=== PATIENT | male | born 1960 | race Caucasian/White ===

== ENCOUNTER 2024-12-30 12:53 | Emergency (ER) | payer MEDICAID, SELFPAY ==
[2024-12-30 12:54] VITALS: BMI 34.7
[2024-12-30 13:20] VITALS: BP 174/84; PULSE 88; RESP 18; TEMP 36.9; O2SAT 99
--- NOTE | 2024-12-30 13:34 | PD.EDHEAD ---
ED Head Injury RME/HPI General Chief complaint: Head Injury Stated complaint: LAC TO BACK OF HEAD WITH EDGE OF TABLE Time Seen by Provider: 12/30/24 13:16 Source: patient Arrival date/time: 12/30/24 12:53 64-year-old male with no known medical history presents to the emergency room with a chief complaint of a laceration to the back of his head after hitting it on the edge of the table. Mode of arrival: ambulatory Limitations: no limitations Related Data Home Medications ?Medication ?Instructions ?Recorded ?Confirmed ASPIRIN (ASA 81MG EC) 81 mg PO QDAY ##0 10/21/13 Allergies Allergy/AdvReac Type Severity Reaction Status Date / Time NKA* Allergy Uncoded 12/30/24 12:56 Review of Systems Review of Systems Systems Reviewed: All systems reviewed, normal except as documented Constitutional Constitutional: Reports system reviewed and no additional complaints, except as documented, Denies fatigue, Denies fever(s), Denies headache(s) and Denies weakness Eyes Eyes: Reports system reviewed and no additional complaints, except as documented, Denies blurry vision and Denies change in vision ENT Ears, Nose, Mouth, and Throat: Reports system reviewed and no additional complaints, except as documented, Denies otalgia, Denies headache(s), Denies nasal congestion, Denies throat swelling and Denies vertigo Cardiovascular Cardiovascular: Reports system reviewed and no additional complaints, except as documented, Denies chest pain, Denies dyspnea and Denies dyspnea on exertion Respiratory Respiratory: Reports system reviewed and no additional complaints, except as documented, Denies chest congestion, Denies cough, Denies dyspnea, Denies dyspnea on exertion and Denies wheezing Gastrointestinal Gastrointestinal: Reports system reviewed and no additional complaints, except as documented, Denies abdominal pain, Denies cramping, Denies nausea and Denies vomiting Genitourinary Genitourinary: Reports system reviewed and no additional complaints, except as documented, Denies dysuria and Denies hematuria Musculoskeletal Musculoskeletal: Reports system reviewed and no additional complaints, except as documented and Denies back pain Integumentary/Breasts Skin/Breast: Reports system reviewed and no additional complaints, except as documented and Denies wounds Neurologic Neurologic: Reports system reviewed and no additional complaints, except as documented, Denies confusion, Denies headache(s), Denies lack of coordination, Denies vertigo and Denies weakness Psychiatric Psychiatric: Reports system reviewed and no additional complaints, except as documented, Denies anxiety, Denies confusion, Denies depression, Denies paranoia, Denies suicidal ideation and Denies tactile hallucinations Endocrine Endocrine: Reports system reviewed and no additional complaints, except as documented and Denies fatigue Hematologic/Lymphatic Hematologic/Lymphatic: Reports system reviewed and no additional complaints, except as documented and Denies lymphadenopathy Allergic/Immunologic Allergic/Immunologic: Reports system reviewed and no additional complaints, except as documented, Denies throat swelling, Denies urticaria and Denies wheezing ED Exam General Limitations: Present no limitations General appearance: Present alert and in no apparent distress Head Head exam: Present atraumatic, normocephalic and normal inspection Expanded Head Exam Head exam physical: Present laceration; Absent abrasion, contusion, hematoma, raccoon eyes, Orozco's sign, tenderness of temporal artery, CSF rhinorrhea or CSF otorrhea Head image:  1. 3 cm laceration to the back of his head Eye Eye exam: Present normal appearance, PERRL and EOMI ENT ENT exam: Present normal exam, normal oropharynx and mucous membranes moist Neck Neck exam: Present normal inspection, full ROM and trachea midline Chest Chest inspection: Present normal inspection and symmetric chest wall rise Respiratory Respiratory exam: Present normal lung sounds bilaterally Cardiovascular Cardiovascular exam: Present regular rate, normal rhythm and normal heart sounds Abdominal Exam Abdominal exam: Present soft and normal bowel sounds Extremities Exam Extremities exam: Present normal inspection and full ROM Back Exam Back exam: Present normal inspection and full ROM Neurological Exam Neurological exam: Present alert, oriented X3 and CN II-XII intact Psychiatric Psychiatric exam: Present normal affect and normal mood Skin Skin exam: Present warm, dry, intact and normal color Course Quality Measures none Vital Signs Vital signs: Vital Signs Temperature 98.5 F 12/30/24 13:20 Pulse Rate 88 12/30/24 13:20 Respiratory Rate 18 12/30/24 13:20 Blood Pressure 174/84 H 12/30/24 13:20 Pulse Oximetry (%) 99 12/30/24 13:20 Oxygen Delivery Method Room Air 12/30/24 13:20 Procedures -ED Laceration Laceration 1: Site: scalp Side (If applicable): left Size (cm): 3 Description: linear Depth: simple, single layer Skin layer closed with: other (Saul) Size (cm): other (Sidman) Number of sutures: 3 Technique: simple, interrupted Head Injury MDM Narrative MDM Narrative:: 64-year-old male with no known medical history presents to the emergency room with a chief complaint of a laceration to the back of his head after hitting it on the edge of the table. Patient is hemodynamically stable and in no apparent distress. Patient has a 3 cm laceration to the posterior side of his head. Patient states he hit his head on a table the wound is superficial. Patient denies any loss of consciousness dizziness lightheadedness headache or any other symptoms. The wound was closed and approximated with 3 saul. Patient was educated return to the emergency room in 7 to 10 days for staple removal patient was educated to follow-up with his primary care provider and return emergency room for any evidence of worsening signs or Patient data External records reviewed:: [facility] previous records Clinical information provided by:: patient Social determinants that could affect healthcare access:: none Patient has the following chronic illnesses:: No chronic illness How is presenting disease/condition affected by chronic disease/condition?: no chronic disease Evaluation data The following diagnostics were reviewed and interpreted by me:: lab results and radiology exam(s) Lab and/or radiology exams considered but not ordered:: Labs and radiology exams considered and ordered Interpretation Summary: N/A Medications / Prescriptions Medications or Prescriptions considered but not ordered:: No medication given Medication administrations:: No medication given Consultations Consultation(s) initiated? (list below): No Diagnosis Differential diagnosis head injury: concussion without loss of consciousness, closed head injury, subdural hematoma, concussion with loss of consciousness and other (Laceration) Most likely diagnosis given after review of the tests above:: Laceration Admission Indicated Admission indicated?: not indicated Admission Request Was there a request for admission?: No Disposition Plan Disposition Plan: Discharge Discharge Attestation Discharge Attestation: The patient and all family members were given an opportunity to ask questions and understood the discharge instructions. Discharge instructions specifically effects, indications for sooner follow up or return to the emergency department, and the expected course of current diagnosis. Patient condition: Stable Discharge Plan Plan Patient Disposition: HOME (Self Care) Discharge Disposition comment: Stable Prescriptions/Referrals Prescriptions/Med Rec: No Action ASPIRIN (ASA 81MG EC) 81 MG TABLET, ENTERIC COATED 81 mg PO QDAY Qty: 0 Problem List Clinical Impression: Laceration of scalp Patient/Caregiver Discharge Instructions Education Materials: ED Head Injury (Adult) Additional Instructions: Please follow-up with your primary care provider in the next 24 to 48 hours. For any evidence of worsening signs or symptoms return to the emergency room immediately Print Language: Serbian Stand Alone Forms: [facility]nam Award Info., Patient Portal Info Letter PA/QUALITY ASSURANCE ASSOCIATE Supervising Physician PA/QUALITY ASSURANCE ASSOCIATE Supervising Physician: Dr. CORONA
== END 2024-12-30 13:51 | disposition home or self-care (01) ==
LOC: SERX 13:39
PROVIDERS: Emergency Provider Emergency Medicine
DX: S01.01XA Laceration without foreign body of scalp, initial encounter (principal); W22.03XA Walked into furniture, initial encounter
CPT/HCPCS: 12002; 99283